=== PATIENT | female | born 1995 | race Caucasian/White ===

== ENCOUNTER 2019-07-13 | Emergency (ER) | payer OTHER ==
[~2019-07-13] MED LIST: AMOXICILLIN875 MG PO; FIORICET PO; ONDANSETRON4 MG PO; PARAGARD IU; ULTRAM50 M1 OR; ZOFRAN ODT4 MG PO
[2019-07-13 16:31] LABS: HEMOGLOBIN 12.7 g/dl (12.0-16.0); IMMATURE GRANULOCYTES 0.3 % (0.0-5.0); MEAN CELL VOLUME 86.6 fL CALC (80.0-100.0); MEAN CORPUSCULAR HGB 28.9 pG CALC (26.0-32.0); MEAN CORPUSCULAR HGB CONC 33.4 g/L CALC (32.0-36.0); NEUT# 7.4 thou/uL (2.00-7.15); RED BLOOD COUNT 4.39 mill/uL (4.20-5.60); RED CELL DISTRI WIDTH 12.3 % (11.5-15.5)
[2019-07-13 16:32] LABS: URINE BILIRUBIN - DIPSTICK NEGATIVE (NEGATIVE); URINE BLOOD DIPSTICK NEGATIVE (NEGATIVE); URINE COLOR YELLOW; URINE GLUCOSE - DIPSTICK NEGATIVE (NEGATIVE); URINE KETONE NEGATIVE (NEGATIVE); URINE LEUK ESTERASE NEGATIVE (NEGATIVE); URINE NITRITE - DIPSTICK NEGATIVE (Negative); URINE PROTEIN - DIPSTICK NEGATIVE (NEG-TRACE); URINE UROBILINOGEN - DIPSTICK 0.2 E.U./dL (0.2)
[2019-07-13 16:42] LABS: ALBUMIN 4.8 g/dL (3.2-5.0); ALKALINE PHOSPHATASE 57 u/l (38-126); ANION GAP 13 (6-22 (CALC)); BILIRUBIN, TOTAL 0.4 mg/dL (0.0-1.4); BUN 12 mg/dL (7-17); BUN/CREATININE RATIO 24 (12-20 (CALC)); CARBON DIOXIDE 27 mmol/l (22-30); CHLORIDE 102 mmol/l (95-108); CREATININE 0.5 mg/dL (0.5-1.0); GFR > 60 ML/MIN (>=60 (CALC)); GFR FOR AFR.AMER. > 60 ML/MIN (>=60 (CALC)); LIPASE 139 u/l (23-300); POTASSIUM 4.2 mmol/l (3.5-5.1); SGOT/AST 25 u/l (14-36); SODIUM 139 mmol/l (137-146); TOTAL PROTEIN 8.3 g/dL (6.3-8.2)
[2019-07-13] MEDS ORDERED: TAMSULOSIN0.4 MG PO (17:24)
== END 2019-07-13 17:45 | disposition home or self-care (01) | DRG 694 ==
PROVIDERS: Emergency Medicine
DX: N20.1 Calculus of ureter (principal); F17.200 Nicotine dependence, unspecified, uncomplicated; R10.31 Right lower quadrant pain; R10.9 Unspecified abdominal pain; R82.79 Other abnormal findings on microbiological examination of urine

== ENCOUNTER 2021-10-19 12:02 | Emergency (ER) | payer SELFPAY ==
[~2021-10-19] VITALS: Ht 162.6 cm; Wt 60.4 kg
[~2021-10-19 12:02] MED LIST changes: +TAMSULOSIN0.4 MG PO
[2021-10-19] MEDS ORDERED: ZPAK PO (13:47)
[2021-10-19] MEDS ORDERED: VENTOLIN HFA IN (13:47)
[2021-10-19 13:51] VITALS: BP 122/89
== END 2021-10-19 14:01 | disposition home or self-care (01) | DRG 833 ==
LOC: ED 12:02
DX: O99.512 Diseases of the respiratory system complicating pregnancy, second trimester (principal); J06.9 Acute upper respiratory infection, unspecified; O30.002 Twin pregnancy, unspecified number of placenta and unspecified number of amniotic sacs, second trimester; Z3A.21 21 weeks gestation of pregnancy; Z20.822 Contact with and (suspected) exposure to COVID-19